=== PATIENT | female | born 1940 | race American Indian/Alaskan Native ===

== ENCOUNTER 2016-11-22 10:09 | Outpatient (CLI) | payer MEDICARE ==
[2016-11-22 10:43] LABS: Hematocrit 24.4 % (30.3-42.9); Hemoglobin 7.9 gm/dl (10.1-14.3); Mean Corpuscular HGB Conc 32 % (30-34); Mean Corpuscular Hemoglobin 29 pg (28-32); Mean Corpuscular Volume 89 fl (79-97); Platelet Count 451 K/mm3 (140-440); Red Blood Count 2.76 M/mm3 (3.65-5.03); Red Cell Distribution Width 20.1 % (13.2-15.2); White Blood Count 7.7 K/mm3 (4.5-11.0)
[2016-11-22 10:49] LABS: Albumin 2.4 g/dL (3.9-5); Albumin/Globulin Ratio 0.7 %; Bilirubin,Total 0.2 mg/dL (0.1-1.2); Chloride 104.3 mmol/L (98-107); Potassium 4.8 mmol/L (3.6-5.0); Total Protein 5.9 g/dL (6.3-8.2)
[2016-11-22 12:39] LABS: Calcium 9.6 mg/dL (8.4-10.2)
--- NOTE | 2016-11-22 14:40 | Cat Scan Report ---
CT scan of chest without IV contrast: Compared to 07/22/16. History: Breast cancer. Findings: Several metastatic nodules are identified the lung parenchyma however appear less in number compared to previous study and some appear smaller in size. I do not see any additional new nodules. No mediastinal mass. No mediastinal adenopathy. Moderate right pleural effusion. Impression: Last number of nodules bilaterally the lung parenchyma. Decrease in size of several persistent nodules. No new additional nodule is identified.
--- NOTE | 2016-11-22 14:55 | Cat Scan Report ---
CT scan of abdomen and pelvis without IV contrast: Compared to 10/16/15. History: Breast cancer. Findings: 2.9 cm x 2.4 cm hypodense mass with adjacent 1.05 cm circumscribed hypodense mass in the liver suggestive of metastatic disease. Normal pancreas spleen and visualized portion of the gallbladder. Right adrenal not visualized and left adrenal appears normal. There is a large mass between liver and the upper pole of right kidney measuring 7.8 x 7.2 cm in diameter obscuring part of the inferior vena cava and the right paravertebral crura. There is a cyst measuring 3 cm in diameter noted right kidney and a second cyst measuring 2.1 cm. There is another mass identified at the posterior aspect of right kidney measuring approximate 6 x 6 cm in diameter. Several circumscribed masses are identified in the right renal fossa. There is fluid identified in the Arias's pouch. Gaseous colon with stool in colon. No bowel distention. No evidence of adenopathy in the periaortic region and the visualized portion of the mesentery. Impression: Multiple masses surrounding right kidney probably suggestive of metastatic disease/lymphadenopathy. Hypodensities in the liver suggestive of metastatic disease.
== END 2016-11-22 10:10 | disposition home or self-care (01) ==
LOC: CT 10:09
DX: C50.411 Malignant neoplasm of upper-outer quadrant of right female breast (principal); N28.1 Cyst of kidney, acquired; N28.89 Other specified disorders of kidney and ureter; J90 Pleural effusion, not elsewhere classified; R91.8 Other nonspecific abnormal finding of lung field
CPT/HCPCS: 36415; 71250; 74150; 80053; 85027

== ENCOUNTER 2017-03-09 11:07 | Emergency (ER) | payer MEDICARE ==
--- NOTE | 2017-03-09 11:25 | Emergency Department Report ---
HPI - General Time Seen by Provider: 03/09/17 11:21 - HPI HPI: This is a 76-year-old Afro-[place] female presents to the emergency department by EMS in cardiac arrest with CPR underway. The patient allegedly was found down and unresponsive by family about 10 minutes prior to calling EMS. By the time EMS got to the emergency department the "down time" was about 20 minutes or so. She had a left lower extremity IO placed and received 2 rounds of epinephrine along with chest compressions. They attempted 2-3 different times for intubation but says that it "fell out." There is no family history known at this time. The patient arrived to the emergency department still pulseless and unresponsive. ED Past Medical Hx - Past Medical History Hx Hypertension: Yes Hx Arthritis: Yes Hx HIV: No Additional medical history: renal failure, breast cancer metastatic cancer with lung and liver metastases. Hypothyroid - Surgical History Hx Breast Surgery: Yes Additional Surgical History: Hysterectomy - Social History Smoking Status: Unknown if ever smoked - Medications Home Medications: Home Medications Medication Instructions Recorded Confirmed Last Taken Type Ferrous Sulfate [Feosol] 325 mg PO DAILY 08/04/13 08/05/16 04/11/14 07:00 History Sodium Bicarbonate 650 mg PO BID 08/04/13 08/05/16 04/11/14 07:00 History Aspirin [Aspirin BABY CHEW TAB] 81 mg PO DAILY 08/05/13 08/05/16 04/11/14 07:00 History Brimonidine Tartrate/Timolol 1 drop OU BID 08/05/13 08/05/16 04/11/14 07:00 History [Combigan Eye Drops 0.2/0.5%] Cholecalciferol (Vitamin D3) 2,000 units PO DAILY 08/05/13 08/05/16 04/11/14 07: 00 History [Vitamin D3] Tolterodine Tartrate [Detrol] 4 mg PO DAILY 08/05/13 08/05/16 04/11/14 07:00 History Donepezil HCl [Donepezil HCl Odt] 10 mg PO DAILY 07/22/16 08/05/16 Unknown History Memantine HCl [Namenda] 5 mg PO BID 07/22/16 08/05/16 Unknown History Allopurinol [Zyloprim] 100 mg PO DAILY #30 07/25/16 08/05/16 04/15/14 07:00 Rx Levothyroxine [Synthroid] 100 mcg PO DAILY@0600 #30 07/25/16 08/05/16 Unknown Rx oxyCODONE /ACETAMINOPHEN [Percocet 1 tab PO Q6H PRN #30 tablet 07/25/16 Unknown Rx 5/325 mg] Levofloxacin [Levaquin] 250 mg PO QDAY #5 tablet 08/08/16 Unknown Rx ED Review of Systems ROS: Stated complaint: CARDIAC ARREST Other details as noted in HPI Comment: Unobtainable due to pts medical conditions Physical Exam - Physical Exam Physical Exam: GENERAL: Patient is ill-appearing and unresponsive. HEENT: Normocephalic. Pupils are fixed and dilated. NECK: Supple. Trachea is midline. CHEST/LUNGS: There are no spontaneous lung sounds. HEART/CARDIOVASCULAR: No spontaneous heart sounds. ABDOMEN: Abdomen is soft. SKIN: Skin is cool but dry. NEURO: Patient is unresponsive to verbal, tactile or painful stimuli and does not follow any commands. MUSCULOSKELETAL: There is no deformity. No spontaneous movement of the extremities. There was no palpable pulse to the radial or femoral regions. There is an IO line in the left upper tibia. - Intubation Time Out Performed: No Sedative: none Laryngoscope: Veena Size: 4 ET Tube Size: 7.5 Tube Secured Depth (cm): 22 Tube Secured Location: lips Tube Placement Confirmation: visualized tube passing t, equal breath sounds bilat, confirmation by capnometr Intubation Complications: none ED Medical Decision Making - Medical Decision Making 76-year-old female presents to the emergency department in asystole with CPR underway after about 20 minutes of down time from when she was found by family. The patient was receiving chest compressions and had received 2 rounds of epinephrine through the interosseous line. However the patient was not intubated. Patient was moved to the [facility] in bed 1 and a pulse check was done and the patient still was found to be pulseless. Chest compressions immediately restarted and ACLS protocol underway and supervised by myself. I intubated the patient with a Mac 4 blade, 7.5 tube and went easily through the vocal cords to 22 cm at the lips. There was good color change and bilateral breath sounds. Overall the patient received 3 rounds of epinephrine, one of sodium bicarbonate, 1 of calcium. Each rhythm and pulse check the patient remained pulseless and was in asystole. After the third round, the patient was still pulseless and in asystole and the ultrasound was used and placed over the hard but there was no cardiac movement, squeeze, flutter. At this point time of was called for 11:15 AM. Allegedly the family is in route and they will be updated and given the opportunity to come back and see her. Critical Care Time: Yes Critical care time in (mins) excluding proc time.: 15 Critical care attestation.: If time is entered above; I have spent that time in minutes in the direct care of this critically ill patient, excluding procedure time. Critical care time includes an initial evaluation, supervision of ACLS protocol and discussion with family. This does not include the time spent for intubation. Critical Care Time: 12 minutes ED Disposition Clinical Impression: Cardiac arrest Respiratory failure Qualifiers: Chronicity: acute Respiratory failure complication: unspecified whether with hypoxia or hypercapnia Qualified Code(s): J96.00 - Acute respiratory failure, unspecified whether with hypoxia or hypercapnia Disposition: DC-20 Is pt being admited?: No Time of Disposition: 12:19
== END 2017-03-09 13:00 ==
LOC: ED 11:07
DX: I46.9 Cardiac arrest, cause unspecified (principal); J96.90 Respiratory failure, unspecified, unspecified whether with hypoxia or hypercapnia; I10 Essential (primary) hypertension; M19.90 Unspecified osteoarthritis, unspecified site
CPT/HCPCS: 92950; 99285